=== PATIENT | female | born 1935 | race Caucasian/White ===

== ENCOUNTER 2016-06-22 15:32 | Emergency (ER) | payer MEDICARE, OTHER ==
[~2016-06-22] VITALS: Ht 160 cm; Wt 106.0 kg
[~2016-06-22 15:32] MED LIST: ACET325 PO; AUGM875T PO; BUME1TAB PO; CALC.25 PO; DULO30 PO; GLIP-158 PO; LEVO.05 PO; METO25CR PO; PERI8.6T PO; PRAV40 PO; SPIR25 PO
[2016-06-22 15:39] VITALS: BP 135/70; PULSE 75; RESP 20; TEMP 97.9
[2016-06-22 17:34] VITALS: BP 141/60; PULSE 62; RESP 18; O2SAT 96
[2016-06-22 17:59] LABS: BASOPHIL # 0.1 TH/MM3 (0-0.2); BASOPHIL % 0.8 % (0.0-2.0); EOSINOPHIL # 0.2 TH/MM3 (0-0.4); EOSINOPHIL % 2.1 % (0.0-4.0); HEMATOCRIT 42.3 % (35.0-46.0); HEMO FLAGS DIFF FINAL; LYMPH % 19.5 % (9.0-44.0); LYMPHOCYTE # 1.4 TH/MM3 (1.0-4.8); MEAN CELL VOLUME 88.3 FL (80.0-100.0); MEAN CORPUSCULAR HEMOGLOBIN 28.5 PG (27.0-34.0); MEAN CORPUSCULAR HGB CONC 32.3 % (32.0-36.0); MONO % 9.5 % (0.0-8.0); NEUT % 68.1 % (16.0-70.0); PLATELET COUNT 187 TH/MM3 (150-450); RED BLOOD COUNT 4.79 MIL/MM3 (4.00-5.30); RED CELL DISTRIBUTION WIDTH 15.5 % (11.6-17.2); WHITE BLOOD COUNT 7.4 TH/MM3 (4.0-11.0)
[2016-06-22 18:07] LABS: POTASSIUM 3.8 MEQ/L (3.5-5.1)
[2016-06-22 18:10] LABS: BICARBONATE 30.7 MEQ/L (21.0-32.0)
[2016-06-22 18:13] LABS: APTT (PATIENT) 30.8 SEC (24.3-30.1); INTERNATIONAL NORMALIZED RATIO 1.2 RATIO; PROTHROMBIN TIME - PATIENT 13.5 SEC (9.8-11.6)
[2016-06-22 18:43] VITALS: BP 123/63; PULSE 64; RESP 16; O2SAT 96
[2016-06-22 18:55] LABS: BLOOD, URINE NEG (NEG); GLUCOSE,URINE NEG (NEG); KETONE, URINE NEG (NEG); NITRITE,URINE NEG (NEG); PH, URINE 5.5 (5.0-8.5)
[2016-06-22 18:59] LABS: RBC, URINE 0-2 /hpf (0-3); SQUAMOUS EPITHELIAL CELL URINE 0-5 /hpf (0-5); URINE COLOR STRAW (YELLW/STRAW); WBC, URINE 0-2 /hpf (0-5)
[2016-06-22 19:00] LABS: COMMENT (UR) CATH-CULT NOT IND; CULTURE IF INDICATED CATH CULTURE NOT IND
[2016-06-22] MEDS ORDERED: TOPR25TA PO (19:14)
[2016-06-22] MEDS ORDERED: LEVO50TA4 PO (19:14)
[2016-06-22] MEDS ORDERED: SENO8.6T5 PO (19:14)
[2016-06-22] MEDS ORDERED: ZOCO20TA PO (19:14)
[2016-06-22] MEDS ORDERED: CALC0.25 PO (19:14)
[2016-06-22] MEDS ORDERED: DULO20 PO (19:14)
[2016-06-22] MEDS ORDERED: SPIR25 PO (19:14)
[2016-06-22] MEDS ORDERED: GLIP5TAB8 PO (19:14)
[2016-06-22] MEDS ORDERED: WARF4TAB51 PO (19:14)
--- NOTE | 2016-06-22 19:23 | PD ---
HPI Chief Complaint: Complaint Time Seen by Provider: 17:10 Travel History International Travel<30 days: No Contact w/Intl Traveler<30days: No Traveled to known affect area: No History of Present Illness HPI This 81-year-old female earlier today felt like she was unable to void. She came to the emergency department and spontaneously voided a large amount she was treated for urinary tract infection last week. 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 PFSH Past Medical History Hx Anticoagulant Therapy: Yes Arthritis: Yes Asthma: No Atrial Fibrillation: Yes Autoimmune Disease: No Blood Disorders: No Anxiety: No Depression: No Heart Rhythm Problems: Yes (A-FIB) Cancer: No Cardiac Catheterization: Yes Cardiovascular Problems: Yes (CABG) High Cholesterol: Yes Chemotherapy: No Chest Pain: No Congestive Heart Failure: Yes COPD: No Cerebrovascular Accident: Yes Coronary Artery Disease: Yes Diabetes: Yes Patient Takes Glucophage: No Diminished Hearing: No ([place]) Endocrine: Yes Gastrointestinal Disorders: Yes (HERNIA) GERD: No Glaucoma: Yes Genitourinary: Yes Headaches: No Hepatitis: No Hiatal Hernia: Yes (STILL HAS) Hypertension: Yes Immune Disorder: No Kidney Stones: No Musculoskeletal: Yes Neurologic: Yes (TIA VS STROKE, BRAIN BLEED 2007) Psychiatric: No Reproductive: Yes (FIBROIDS/HYSTERECTOMY) Respiratory: No Integumentary: Yes (SACRAL DECUBITUS ULCER WOUND VAC 2006) Immunizations Current: Yes (SHINGLES) Migraines: No Myocardial Infarction: No Radiation Therapy: No Renal Failure: Yes (RHABDO RESOLVED) Seizures: No Sickle Cell Disease: No Sleep Apnea: No Thyroid Disease: Yes Ulcer: No Tetanus Vaccination: < 5 Years ?: Not : 3 Para: 3 Past Surgical History Abdominal Surgery: Yes (APPENDECTOMY) AICD: No Appendectomy: Yes Arteriovenous Shunt: No Cardiac Surgery: Yes (cabg AND STENTS) Coronary Artery Bypass Graft: Yes Coronary Stent: Yes Ear Surgery: No Endocrine Surgery: Yes (THYROIDECTOMY) Eye Surgery: Yes (bilateral CATARACTS ) Genitourinary Surgery: No Gynecologic Surgery: Yes (HYSTERECTOMY) Hysterectomy: Yes Insulin Pump: No Joint Replacement: No Neurologic Surgery: Yes (BACK SURGERY FOR SCIATICA) Oral Surgery: Yes (CAPS AND BRIDGES) Pacemaker: No Thoracic Surgery: No Valve Replacement: Yes Other Surgery: Yes Social History Alcohol Use: No Tobacco Use: No ("quit 1960s") Substance Use: No Allergies-Medications (Allergen,Severity, Reaction): Coded Allergies: *MDRO Multi-Drug Resistant Organism (Verified Adverse Reaction, Unknown, ) Patient reports history of MRSA in toe in 2007. MRSA PCR Screen negative 03/28/15 & 01/08/16 Cleared per Infection Control Reported Meds & Prescriptions Reported Meds & Active Scripts Active Reported Senokot (Sennosides) 8.6 Mg Tab 8.6 Mg PO DAILY Zocor (Simvastatin) 20 Mg Tab 20 Mg PO DAILY Warfarin 2 Mg Tab 2 Mg PO DAILY Calcitriol 0.25 Mcg Cap 0.25 Mcg PO SUN, SUN, SUN Glipizide 5 Mg Tab 5 Mg PO BIDAC Take 30 minutes before a meal Cymbalta DR (Duloxetine HCl) 20 Mg Capdr 20 Mg PO DAILY Toprol XL (Metoprolol Succinate) 25 Mg Tab 25 Mg PO DAILY Aldactone (Spironolactone) 25 Mg Tab 25 Mg PO DAILY Levothyroxine (Levothyroxine Sodium) 50 Mcg Tab 50 Mcg PO DAILY Review of Systems General / Constitutional: No: Fever, Chills Eyes: No: Diploplia Cardiovascular: No: Chest Pain or Discomfort Respiratory: No: Cough Genitourinary: Positive: Decreased Urinary Output, No: Dysuria Musculoskeletal: No: Myalgias Skin: No Itching Physical Exam Narrative GENERAL: Well-developed female SKIN: Warm and dry. HEAD: Atraumatic. Normocephalic. EYES: Pupils equal and round. No scleral icterus. No injection or drainage. ENT: No nasal bleeding or discharge. Mucous membranes pink and moist. NECK: Trachea midline. No JVD. CARDIOVASCULAR: Regular rate and rhythm. No murmur appreciated. RESPIRATORY: No accessory muscle use. Clear to auscultation. Breath sounds equal bilaterally. GASTROINTESTINAL: Abdomen soft, non-tender, nondistended. Hepatic and splenic margins not palpable. MUSCULOSKELETAL: No obvious deformities. No clubbing. No cyanosis. No edema. NEUROLOGICAL: Awake and alert. No obvious cranial nerve deficits. Motor grossly within normal limits. Normal speech. PSYCHIATRIC: Appropriate mood and affect; insight and judgment normal. Data Data Last Documented VS Vital Signs Date Time Temp Pulse Resp B/P Pulse Ox O2 Delivery O2 Flow Rate FiO2 06/22/16 18:43 64 16 123/63 96 Room Air 06/22/16 15:39 97.9 Orders Urinalysis - C+S If Indicated (06/22/16 17:13) Complete Blood Count With Diff (06/22/16 17:43) Basic Metabolic Panel (Bmp) (06/22/16 17:43) Prothrombin Time / Inr (Pt) (06/22/16 17:43) Act Partial Throm Time (Ptt) (06/22/16 17:43) Urinary Catheter Insert/Apply (06/22/16 17:43) Labs Laboratory Tests Test 06/22/16 06/22/16 17:50 18:25 White Blood Count 7.4 TH/MM3 Red Blood Count 4.79 MIL/MM3 Hemoglobin 13.7 GM/DL Hematocrit 42.3 % Mean Corpuscular Volume 88.3 FL Mean Corpuscular Hemoglobin 28.5 PG Mean Corpuscular Hemoglobin 32.3 % Concent Red Cell Distribution Width 15.5 % Platelet Count 187 TH/MM3 Mean Platelet Volume 8.6 FL Neutrophils (%) (Auto) 68.1 % Lymphocytes (%) (Auto) 19.5 % Monocytes (%) (Auto) 9.5 % Eosinophils (%) (Auto) 2.1 % Basophils (%) (Auto) 0.8 % Neutrophils # (Auto) 5.0 TH/MM3 Lymphocytes # (Auto) 1.4 TH/MM3 Monocytes # (Auto) 0.7 TH/MM3 Eosinophils # (Auto) 0.2 TH/MM3 Basophils # (Auto) 0.1 TH/MM3 CBC Comment DIFF FINAL Differential Comment Prothrombin Time 13.5 SEC Prothromb Time International 1.2 RATIO Ratio Activated Partial 30.8 SEC Thromboplast Time Sodium Level 141 MEQ/L Potassium Level 3.8 MEQ/L Chloride Level 101 MEQ/L Carbon Dioxide Level 30.7 MEQ/L Anion Gap 9 MEQ/L Blood Urea Nitrogen 40 MG/DL Creatinine 1.40 MG/DL Estimat Glomerular Filtration 36 ML/MIN Rate Random Glucose 89 MG/DL Calcium Level 8.9 MG/DL Urine Color STRAW Urine Turbidity CLEAR Urine pH 5.5 Urine Specific [place] 1.006 Urine Protein NEG mg/dL Urine Glucose (UA) NEG mg/dL Urine Ketones NEG mg/dL Urine Occult Blood NEG Urine Nitrite NEG Urine Bilirubin NEG Urine Leukocyte Esterase NEG Urine RBC 0-2 /hpf Urine WBC 0-2 /hpf Urine Squamous Epithelial 0-5 /hpf Cells Urine Bacteria NONE /hpf Microscopic Urinalysis Comment CATH-CULT NOT IND MDM Medical Decision Making Medical Screen Exam Complete: Yes Emergency Medical Condition: Yes Medical Record Reviewed: Yes Differential Diagnosis Differential includes UTI, urinary retention Narrative Course Cedeno catheter was inserted with 500 cc of urine obtained. The urine is not infected. Lab work is similar to previous values her INR is low normal. Patient will be released with instructions to return if she is unable to void sending her home with a catheter was discussed with the patient prefers a trial without the catheter Diagnosis Primary Impression: Urinary retention Disposition: 01 DISCHARGE HOME Condition: Stable Evert Meza MD Jun 22, 2016 19:23
== END 2016-06-22 19:57 | disposition home or self-care (01) ==
LOC: PHED 15:32
DX: R33.9 Retention of urine, unspecified (principal); I48.91 Unspecified atrial fibrillation; E78.00 Pure hypercholesterolemia, unspecified; E11.9 Type 2 diabetes mellitus without complications; I10 Essential (primary) hypertension; Z79.01 Long term (current) use of anticoagulants
CPT/HCPCS: 51702; 80048; 81001; 85025; 85610; 85730

== ENCOUNTER → 2016-08-11 | Outpatient (CLI) | payer MEDICARE, OTHER ==
[~2016-08-11] MED LIST changes: -ACET325 PO; -AUGM875T PO; -BUME1TAB PO; -CALC.25 PO; +CALC0.25 PO; +DULO20 PO; -DULO30 PO; -GLIP-158 PO; +GLIP5TAB8 PO; -LEVO.05 PO; +LEVO50TA4 PO; +META48.53 PO; -METO25CR PO; -PERI8.6T PO; -PRAV40 PO; +SENN1TAB PO; +SENO8.6T5 PO; +TOPR25TA PO; +WARF4TAB51 PO; +ZOCO20TA PO
[2016-08-11 13:38] LABS: HEMATOCRIT 40.2 % (35.0-46.0); MEAN CELL VOLUME 90.2 FL (80.0-100.0); MEAN CORPUSCULAR HEMOGLOBIN 29.9 PG (27.0-34.0); MEAN CORPUSCULAR HGB CONC 33.2 % (32.0-36.0); PLATELET COUNT 187 TH/MM3 (150-450); RED BLOOD COUNT 4.45 MIL/MM3 (4.00-5.30); RED CELL DISTRIBUTION WIDTH 15.9 % (11.6-17.2); REVIEW FLAG FINAL; WHITE BLOOD COUNT 7.5 TH/MM3 (4.0-11.0)
[2016-08-11 14:08] LABS: ANION GAP 8 MEQ/L (5-15); AST (GOT) 18 U/L (15-37); BICARBONATE 31.4 MEQ/L (21.0-32.0); BLOOD UREA NITROGEN 29 MG/DL (7-18); CHLORIDE 103 MEQ/L (98-107); GLOMERULAR FILTRATION RATE 37 ML/MIN (>89); GLUCOSE,FASTING 88 MG/DL (74-99); POTASSIUM 4.4 MEQ/L (3.5-5.1); SODIUM (NA) 142 MEQ/L (136-145)
[2016-08-11 14:21] LABS: ALKALINE PHOSPHATASE 94 U/L (45-117); ALT (GPT) 17 U/L (10-53); HDL CHOLESTEROL 39.9 MG/DL (40.0-60.0); LDL CHOLESTEROL 101 MG/DL (0-99); TOTAL BILIRUBIN ADULT 0.4 MG/DL (0.2-1.0)
== END ==
LOC: PLAB 09:25
PROVIDERS: ATTEND Internal Medicine Interventional Cardiology
DX: R53.81 Other malaise (principal); I25.10 Atherosclerotic heart disease of native coronary artery without angina pectoris; I35.0 Nonrheumatic aortic (valve) stenosis; R60.0 Localized edema; R00.1 Bradycardia, unspecified; I34.0 Nonrheumatic mitral (valve) insufficiency; E78.00 Pure hypercholesterolemia, unspecified
CPT/HCPCS: 36415; 80053; 80061; 84443; 85027

== ENCOUNTER → 2016-10-13 | Outpatient (CLI) | payer MEDICARE, OTHER ==
[2016-10-13 13:11] LABS: AUTOMATED NEUTROPHIL # 5.5 TH/MM3 (1.8-7.7); BASOPHIL % 0.6 % (0.0-2.0); EOSINOPHIL # 0.1 TH/MM3 (0-0.4); HEMATOCRIT 41.2 % (35.0-46.0); HEMO FLAGS DIFF FINAL; LYMPH % 12.5 % (9.0-44.0); LYMPHOCYTE # 0.9 TH/MM3 (1.0-4.8); MEAN CELL VOLUME 92.5 FL (80.0-100.0); MEAN CORPUSCULAR HEMOGLOBIN 29.6 PG (27.0-34.0); MEAN CORPUSCULAR HGB CONC 31.9 % (32.0-36.0); MONO % 8.3 % (0.0-8.0); NEUT % 76.6 % (16.0-70.0); PLATELET COUNT 186 TH/MM3 (150-450); RED BLOOD COUNT 4.45 MIL/MM3 (4.00-5.30); RED CELL DISTRIBUTION WIDTH 14.6 % (11.6-17.2); WHITE BLOOD COUNT 7.2 TH/MM3 (4.0-11.0)
[2016-10-13 13:34] LABS: BACTERIA, URINE OCC /hpf; BLOOD, URINE SMALL (NEG); GLUCOSE,URINE NEG (NEG); KETONE, URINE NEG (NEG); MUCUS URINE FEW /lpf (OCC); NITRITE,URINE NEG (NEG); PH, URINE 5.5 (5.0-8.5); SQUAMOUS EPITHELIAL CELL URINE 5 /hpf (0-5); URINE COLOR YELLOW (YELLW/STRAW)
[2016-10-13 13:40] LABS: BICARBONATE 33.6 MEQ/L (21.0-32.0); POTASSIUM 4.1 MEQ/L (3.5-5.1)
== END ==
LOC: PLAB 10:14
PROVIDERS: ATTEND Internal Medicine Nephrology
DX: N25.81 Secondary hyperparathyroidism of renal origin (principal); E55.9 Vitamin D deficiency, unspecified; I12.9 Hypertensive chronic kidney disease with stage 1 through stage 4 chronic kidney disease, or unspecified chronic kidney disease; N18.3 Chronic kidney disease, stage 3 (moderate); E11.22 Type 2 diabetes mellitus with diabetic chronic kidney disease
CPT/HCPCS: 36415; 80069; 81001; 82306; 82570; 83970; 84156; 85025

== ENCOUNTER 2016-11-15 12:38 | Observation (INO) | payer MEDICARE, OTHER ==
[~2016-11-15] VITALS: Ht 157.5 cm; Wt 100.0 kg
[~2016-11-15 12:38] MED LIST changes: -META48.53 PO; -SENN1TAB PO
[2016-11-15 12:39] VITALS: BP 137/77; PULSE 68; RESP 20; TEMP 97.8; O2SAT 97
[2016-11-15 13:35] VITALS: O2SAT 97
--- NOTE | 2016-11-15 13:35 | PD ---
HPI Chief Complaint: Bleeding Time Seen by Provider: 13:35 Travel History International Travel<30 days: No Contact w/Intl Traveler<30days: No Traveled to known affect area: No History of Present Illness HPI 81-year-old female with a history of hypertension, diabetes, CVA, atrial fibrillation, anticoagulated on Coumadin presents to the emergency department for evaluation of blood in stool. 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 The patient is stating that yesterday she had a bowel movement and noticed that there was bright red blood in the toilet. The caregiver stating that she saw there was a large blood clot in the toilet after the patient had a bowel movement. The patient is stating that yesterday is the first time she has noticed this. Denies any black stools, abdominal pain, nausea, vomiting, diarrhea, lightheadedness, dizziness, chest pain, shortness of breath, weakness. States that her last INR was last week and was 2.5. States that she does have some constipation and strains with bowel movements. No other complaints. PFSH Past Medical History Hx Anticoagulant Therapy: Yes (coumadin) Arthritis: Yes Asthma: No Atrial Fibrillation: Yes Autoimmune Disease: No Blood Disorders: No Anxiety: No Depression: No Heart Rhythm Problems: Yes (A-FIB) Cancer: No Cardiac Catheterization: Yes Cardiovascular Problems: Yes (bypass) High Cholesterol: Yes Chemotherapy: No Chest Pain: No Congestive Heart Failure: Yes COPD: No Cerebrovascular Accident: Yes Coronary Artery Disease: Yes Diabetes: Yes Patient Takes Glucophage: Yes Diminished Hearing: No ([place]) Endocrine: Yes Gastrointestinal Disorders: Yes (HERNIA) GERD: No Glaucoma: Yes Genitourinary: Yes Headaches: No Hepatitis: No Hiatal Hernia: Yes (STILL HAS) Hypertension: Yes Immune Disorder: No Kidney Stones: No Musculoskeletal: Yes Neurologic: Yes (TIA VS STROKE, BRAIN BLEED 2007) Psychiatric: No Reproductive: Yes (FIBROIDS/HYSTERECTOMY) Respiratory: No Integumentary: Yes (SACRAL DECUBITUS ULCER WOUND VAC 2006) Immunizations Current: Yes (SHINGLES) Migraines: No Myocardial Infarction: No Radiation Therapy: No Renal Failure: Yes (RHABDO RESOLVED) Seizures: No Sickle Cell Disease: No Sleep Apnea: No Thyroid Disease: Yes Ulcer: No : 3 Para: 3 Past Surgical History Abdominal Surgery: Yes (APPENDECTOMY) AICD: No Appendectomy: Yes Arteriovenous Shunt: No Cardiac Surgery: Yes Coronary Artery Bypass Graft: Yes Coronary Stent: Yes Ear Surgery: No Endocrine Surgery: Yes (THYROIDECTOMY) Eye Surgery: Yes (bilateral CATARACTS ) Genitourinary Surgery: No Gynecologic Surgery: Yes (HYSTERECTOMY) Hysterectomy: Yes Insulin Pump: No Joint Replacement: No Neurologic Surgery: Yes (BACK SURGERY FOR SCIATICA) Oral Surgery: Yes (CAPS AND BRIDGES) Pacemaker: No Thoracic Surgery: No Valve Replacement: Yes Other Surgery: Yes Social History Alcohol Use: No Tobacco Use: No Substance Use: No Allergies-Medications (Allergen,Severity, Reaction): Coded Allergies: *MDRO Multi-Drug Resistant Organism (Verified Adverse Reaction, Unknown, ) Patient reports history of MRSA in toe in 2007. MRSA PCR Screen negative 03/28/15 & 01/08/16 Cleared per Infection Control Reported Meds & Prescriptions Reported Meds & Active Scripts Active Reported Senokot (Sennosides) 8.6 Mg Tab 8.6 Mg PO DAILY Zocor (Simvastatin) 20 Mg Tab 20 Mg PO DAILY Warfarin 2 Mg Tab 2 Mg PO DAILY Calcitriol 0.25 Mcg Cap 0.25 Mcg PO MON, WED, FRI Glipizide 5 Mg Tab 5 Mg PO BIDAC Take 30 minutes before a meal Cymbalta DR (Duloxetine HCl) 20 Mg Capdr 20 Mg PO DAILY Toprol XL (Metoprolol Succinate) 25 Mg Tab 25 Mg PO DAILY Aldactone (Spironolactone) 25 Mg Tab 25 Mg PO DAILY Levothyroxine (Levothyroxine Sodium) 50 Mcg Tab 50 Mcg PO DAILY Review of Systems Except as stated in HPI: all other systems reviewed are Neg Physical Exam Narrative GENERAL: Well-nourished and well-developed pleasant female patient in no acute distress. SKIN: Warm and dry. HEAD: Normocephalic and atraumatic. EYES: No injection, drainage, or hyphema noted. PERRLA. EOMI. ENT: No nasal drainage noted. Oropharynx is clear. NECK: Supple and the trachea is midline. CARDIOVASCULAR: Regular rate and rhythm. RESPIRATORY: Breath sounds are equal bilaterally with no accessory muscle use, wheezing, rhonchi, or crackles. GASTROINTESTINAL: Abdomen is soft, non-tender, and nondistended. RECTAL EXAM: Hard stool noted in the rectum. Stool is brown. Performed in the presence of Cyndi Evans RN. MUSCULOSKELETAL: No obvious deformities, swelling, cyanosis, or ecchymosis is present throughout the upper and lower extremities. Patient has full range of motion without any signs of neurovascular compromise. NEUROLOGICAL: Awake, alert, and oriented. Stuttering speech. Normal gait. Cranial nerves are grossly intact. Data Data Last Documented VS Vital Signs Date Time Temp Pulse Resp B/P Pulse Ox O2 Delivery O2 Flow Rate FiO2 11/15/16 14:22 74 18 134/68 98 Room Air 11/15/16 12:39 97.8 Orders Complete Blood Count With Diff (11/15/16 13:33) Comprehensive Metabolic Panel (11/15/16 13:33) Prothrombin Time / Inr (Pt) (11/15/16 13:33) Act Partial Throm Time (Ptt) (11/15/16 13:33) Type And Screen (11/15/16 13:33) Ecg Monitoring (11/15/16 13:33) Iv Access Insert/Monitor (11/15/16 13:33) Oximetry (11/15/16 13:33) Sodium Chloride 0.9% Flush (Ns Flush) (11/15/16 13:45) Pantoprazole Inj (Protonix Inj) (11/15/16 13:45) Pantoprazole Inj (Protonix Inj) (11/15/16 13:45) Admit Order (Ed Use Only) (11/15/16 15:02) Consult Gastroenterology (11/15/16 ) Labs Laboratory Tests Test 11/15/16 13:38 White Blood Count 7.5 TH/MM3 Red Blood Count 4.66 MIL/MM3 Hemoglobin 13.8 GM/DL Hematocrit 43.4 % Mean Corpuscular Volume 93.2 FL Mean Corpuscular Hemoglobin 29.6 PG Mean Corpuscular Hemoglobin 31.7 % Concent Red Cell Distribution Width 15.0 % Platelet Count 186 TH/MM3 Mean Platelet Volume 8.5 FL Neutrophils (%) (Auto) 70.8 % Lymphocytes (%) (Auto) 16.8 % Monocytes (%) (Auto) 9.1 % Eosinophils (%) (Auto) 2.7 % Basophils (%) (Auto) 0.6 % Neutrophils # (Auto) 5.3 TH/MM3 Lymphocytes # (Auto) 1.3 TH/MM3 Monocytes # (Auto) 0.7 TH/MM3 Eosinophils # (Auto) 0.2 TH/MM3 Basophils # (Auto) 0.0 TH/MM3 CBC Comment DIFF FINAL Differential Comment Prothrombin Time 30.2 SEC Prothromb Time International 2.6 RATIO Ratio Activated Partial 45.7 SEC Thromboplast Time Sodium Level 139 MEQ/L Potassium Level 3.8 MEQ/L Chloride Level 102 MEQ/L Carbon Dioxide Level 30.6 MEQ/L Anion Gap 6 MEQ/L Blood Urea Nitrogen 32 MG/DL Creatinine 1.41 MG/DL Estimat Glomerular Filtration 36 ML/MIN Rate Random Glucose 85 MG/DL Calcium Level 9.5 MG/DL Total Bilirubin 0.4 MG/DL Aspartate Amino Transf 24 U/L (AST/SGOT) Alanine Aminotransferase 19 U/L (ALT/SGPT) Alkaline Phosphatase 99 U/L Total Protein 8.0 GM/DL Albumin 3.6 GM/DL Blood Type O POSITIVE Antibody Screen NEGATIVE MDM Medical Decision Making Medical Screen Exam Complete: Yes Emergency Medical Condition: Yes Differential Diagnosis GI bleed versus supratherapeutic INR versus peptic ulcer disease versus colitis Narrative Course 81-year-old female presents to the emergency department for evaluation of rectal bleeding last night. Patient is afebrile, vital signs are stable. On examination stool is guaiac positive. She is anticoagulated on Coumadin. IV access is obtained, labs have been drawn and sent. Patient is placed on cardiac telemetry and pulse oximetry monitoring. Protonix bolus and drip has been initiated. CBC is unremarkable. CMP is unremarkable. INR is 2.6. Patient has remained stable without complaint while here in the emergency department. She'll be admitted under observation status to medicine service with consultation to [facility]enterology. [facility] Internal Pos. & Neg. Controls: Passed Fecal Specimen Occult Blood: Positive Physician Communication Physician Communication I spoke with Dr. Alvarez [facility] who agrees to admit the patient to his service. Diagnosis Primary Impression: GI bleed Qualified Code: K92.2 - Gastrointestinal hemorrhage, unspecified gastrointestinal hemorrhage type Additional Impression: Anticoagulated on warfarin Admitting Information Admitting Physician Requests: Observation Rosi Alvarez Nov 15, 2016 13:35
[2016-11-15] MEDS ORDERED: PANTOPRAZOLE INJ 80 MG in SODIUM CHLORIDE 0.9% INJ 35 ML IV ONE (13:45)
[2016-11-15] MEDS ORDERED: SODIUM CHLORIDE 0.9% FLUSH 10 ML FLUSH IVF PRN (13:45)
[2016-11-15 13:52] LABS: AUTOMATED NEUTROPHIL # 5.3 TH/MM3 (1.8-7.7); BASOPHIL % 0.6 % (0.0-2.0); EOSINOPHIL # 0.2 TH/MM3 (0-0.4); EOSINOPHIL % 2.7 % (0.0-4.0); HEMATOCRIT 43.4 % (35.0-46.0); HEMO FLAGS DIFF FINAL; LYMPH % 16.8 % (9.0-44.0); LYMPHOCYTE # 1.3 TH/MM3 (1.0-4.8); MEAN CELL VOLUME 93.2 FL (80.0-100.0); MEAN CORPUSCULAR HEMOGLOBIN 29.6 PG (27.0-34.0); MEAN CORPUSCULAR HGB CONC 31.7 % (32.0-36.0); MONO % 9.1 % (0.0-8.0); NEUT % 70.8 % (16.0-70.0); PLATELET COUNT 186 TH/MM3 (150-450); RED BLOOD COUNT 4.66 MIL/MM3 (4.00-5.30); WHITE BLOOD COUNT 7.5 TH/MM3 (4.0-11.0)
[2016-11-15 14:00] LABS: APTT (PATIENT) 45.7 SEC (24.3-30.1); INTERNATIONAL NORMALIZED RATIO 2.6 RATIO; PROTHROMBIN TIME - PATIENT 30.2 SEC (9.8-11.6)
[2016-11-15 14:16] LABS: ALT (GPT) 19 U/L (10-53); ANION GAP 6 MEQ/L (5-15); AST (GOT) 24 U/L (15-37); BICARBONATE 30.6 MEQ/L (21.0-32.0); BLOOD UREA NITROGEN 32 MG/DL (7-18); CHLORIDE 102 MEQ/L (98-107); GLOMERULAR FILTRATION RATE 36 ML/MIN (>89); POTASSIUM 3.8 MEQ/L (3.5-5.1); SODIUM (NA) 139 MEQ/L (136-145)
[2016-11-15 14:18] LABS: ALKALINE PHOSPHATASE 99 U/L (45-117); TOTAL BILIRUBIN ADULT 0.4 MG/DL (0.2-1.0)
[2016-11-15 14:22] VITALS: BP 134/68; PULSE 74; RESP 18; O2SAT 98
[2016-11-15] MEDS: PANTOPRAZOLE INJ 80 MG in SODIUM CHLORIDE 0.9% INJ 100 ML IV SCH ×2 (14:52→23:41)
[2016-11-15] MEDS ORDERED: SENNOSIDES 8.6 MG TAB PO PRN (15:15)
[2016-11-15] MEDS ORDERED: MAGNESIUM HYDROXIDE SUSP 30 ML CUP PO PRN (15:15)
[2016-11-15] MEDS ORDERED: LACTULOSE SYRUP 20 GM/30 ML CUP PO PRN (15:15)
[2016-11-15] MEDS ORDERED: ONDANSETRON HCL 4 MG/2 ML VIAL IVP PRN (15:15)
[2016-11-15] MEDS ORDERED: SODIUM CHLORIDE 0.9% FLUSH 10 ML FLUSH IV FLUSH PRN (15:15)
[2016-11-15] MEDS ORDERED: BISACODYL 10 MG SUPP RECTAL PRN (15:15)
[2016-11-15] MEDS ORDERED: NALOXONE HCL 0.4 MG/ML AMP IV PRN (15:15)
[2016-11-15] MEDS: SODIUM CHLOR 0.9% 1000 ML INJ 1,000 ML IV SCH ×2 (15:42→23:41)
[2016-11-15] MEDS ORDERED: GLUCAGON 1 MG/ML VIAL OTHER PRN (17:45)
[2016-11-15] MEDS ORDERED: DEXTROSE 50% IN WATER 50 ML VIAL(D50) IV PRN (17:45)
--- NOTE | 2016-11-15 17:57 | HHI.HP ---
[facility] Service [facility] Primary Care Physician Nabil Owen MD Admission Diagnosis GI Bleed, Anticoagulated on Warfarin Diagnoses: Travel History International Travel<30 Days: No Contact w/Intl Traveler <30 Da: No Traveled to Known Affected Are: No History of Present Illness Mrs. Orozco is an 81 year old female. She is here today due to an acute onset of GI Bleeding while having a bowel movement. She reports straining and then seeing blood in her stool and toilet bowl. When she stood, there was dripping of blood. Concerned she came to the ER. She is on Coumadin at baseline secondary to artificial aortic and mitral heart valves. INR is therapeutic tonight. She has one previous GI Bleed in 2010. Hgb is 13.8 tonight. No complaints of abdominal pain. At baseline she has dysarthria secondary to a history of CVA. No other complaints. No chest pain, no dyspnea, no nausea, no diarrhea, no presyncope. Review of Systems Constitutional: DENIES: Fatigue, Fever, Chills Eyes: DENIES: Blurred vision, Diplopia Ears, nose, mouth, throat: DENIES: Hearing loss, Vertigo Respiratory: DENIES: Cough, Wheezing, Shortness of breath Cardiovascular: DENIES: Chest pain, Palpitations, Syncope Gastrointestinal: COMPLAINS OF: Bloody stools, DENIES: Abdominal pain, Black stools Musculoskeletal: DENIES: Joint pain, Muscle aches Integumentary: DENIES: Abnormal pigmentation Hematologic/lymphatic: DENIES: Bruising Immunologic/allergic: DENIES: Eczema Neurologic: DENIES: Abnormal gait Psychiatric: DENIES: Anxiety, Confusion Past Family Social History Past Medical History DM2 CKD PAD CAD HTN Hx of GI Bleed GI AVMs Chronic Neck Pain Past Surgical History CABGx2 Mitral Valve replacement Aortic Valve replacement TYSON/BSO Ventral Hernia repair LLE Angioplasty Reported Medications Reported Meds & Active Scripts Active Reported Senokot (Sennosides) 8.6 Mg Tab 8.6 Mg PO DAILY Zocor (Simvastatin) 20 Mg Tab 20 Mg PO DAILY Warfarin 2 Mg Tab 2 Mg PO DAILY Calcitriol 0.25 Mcg Cap 0.25 Mcg PO MON, WED, SUN Glipizide 5 Mg Tab 5 Mg PO BIDAC Take 30 minutes before a meal Cymbalta DR (Duloxetine HCl) 20 Mg Capdr 20 Mg PO DAILY Toprol XL (Metoprolol Succinate) 25 Mg Tab 25 Mg PO DAILY Aldactone (Spironolactone) 25 Mg Tab 25 Mg PO DAILY Levothyroxine (Levothyroxine Sodium) 50 Mcg Tab 50 Mcg PO DAILY Allergies: Coded Allergies: *MDRO Multi-Drug Resistant Organism (Verified Adverse Reaction, Unknown, ) Patient reports history of MRSA in toe in 2007. MRSA PCR Screen negative 03/28/15 & 01/08/16 Cleared per Infection Control Active Ordered Medications Administered Medications Medications (Trade) Dose Ordered Sig/Alessia Route PRN Reason Start Time Stop Time Status Last Admin Dose Admin Pantoprazole Sodium 80 mg/ Sodium Chloride 100 ml @ 10 mls/hr Q10H IV 11/15/16 13:45 11/15/16 14:52 Sodium Chloride (NS 1000 ml Inj) 1,000 ml @ 100 mls/hr Q10H IV 11/15/16 15:04 11/15/16 15:42 Family History Ovarian Cancer in Mother Social History Former Smoker, quit in 1983 after a 20 year history of smoking No alcohol abuse No drug abuse Physical Exam Vital Signs Vital Signs Date Time Temp Pulse Resp B/P Pulse Ox O2 Delivery O2 Flow Rate FiO2 11/15/16 14:22 74 18 134/68 98 Room Air 11/15/16 13:35 97 Room Air 11/15/16 12:39 97.8 68 20 137/77 97 Room Air Physical Exam GENERAL: NAD, A&Ox3, dysarthric speech SKIN: Warm and dry. HEAD: Normocephalic. EYES: No scleral icterus. No injection or drainage. NECK: Supple, trachea midline. No JVD or lymphadenopathy. CARDIOVASCULAR: Regular rate and rhythm without murmurs, gallops, or rubs. RESPIRATORY: Breath sounds equal bilaterally. No accessory muscle use. GASTROINTESTINAL: Abdomen soft, non-tender, nondistended. MUSCULOSKELETAL: No cyanosis, or edema. BACK: Nontender without obvious deformity. No CVA tenderness. Laboratory Laboratory Tests Test 11/15/16 13:38 White Blood Count 7.5 Red Blood Count 4.66 Hemoglobin 13.8 Hematocrit 43.4 Mean Corpuscular Volume 93.2 Mean Corpuscular Hemoglobin 29.6 Mean Corpuscular Hemoglobin 31.7 Concent Red Cell Distribution Width 15.0 Platelet Count 186 Mean Platelet Volume 8.5 Neutrophils (%) (Auto) 70.8 Lymphocytes (%) (Auto) 16.8 Monocytes (%) (Auto) 9.1 Eosinophils (%) (Auto) 2.7 Basophils (%) (Auto) 0.6 Neutrophils # (Auto) 5.3 Lymphocytes # (Auto) 1.3 Monocytes # (Auto) 0.7 Eosinophils # (Auto) 0.2 Basophils # (Auto) 0.0 CBC Comment DIFF FINAL Differential Comment Prothrombin Time 30.2 Prothromb Time International 2.6 Ratio Activated Partial 45.7 Thromboplast Time Sodium Level 139 Potassium Level 3.8 Chloride Level 102 Carbon Dioxide Level 30.6 Anion Gap 6 Blood Urea Nitrogen 32 Creatinine 1.41 Estimat Glomerular Filtration 36 Rate Random Glucose 85 Calcium Level 9.5 Total Bilirubin 0.4 Aspartate Amino Transf 24 (AST/SGOT) Alanine Aminotransferase 19 (ALT/SGPT) Alkaline Phosphatase 99 Total Protein 8.0 Albumin 3.6 Blood Type O POSITIVE Antibody Screen NEGATIVE Result Diagram: 11/15/168 11/15/161337 Assessment and Plan Problem List: (1) Heart valve replaced ICD Code: Z95.2 Status: Chronic (2) Aortic valve prosthesis present ICD Code: Z95.2 Status: Acute (3) History of prosthetic mitral valve ICD Code: Z95.2 Status: Acute (4) GI bleed ICD Code: K92.2 Status: Acute (5) Anticoagulated on warfarin ICD Code: Z79.01 Status: Acute (6) Diabetes mellitus type 2 in obese ICD Code: E11.9 Status: Chronic (7) CKD (chronic kidney disease), stage III ICD Code: N18.3 Status: Chronic (8) HTN (hypertension) ICD Code: I10 Status: Chronic Assessment and Plan Assessment and Plan 81 year old female admitted with GI Bleed in setting of need for Coumadin ( therapeutic). GI Bleed No anemia thus far May be hemorrhoid related, based on history of spontaneous occurrence with bowel movement Hold coumadin for now Vitamin K Clear liquids GI consult Artificial Mitral Valve Artificial Aortic Valve Hold coumadin till bleeding stops Resume coumadin after bleeding stops DM2 Insulin Sliding Scale Follow blood sugars CKD IV Hydration Follow renal function PAD CAD Follow clinically No chest pain HTN Follow BP PRN IV Enalapril DVT Prophylaxis SCDs Problem Qualifiers (1) GI bleed: Qualified Code: K92.2 - Gastrointestinal hemorrhage, unspecified gastrointestinal hemorrhage type Tato Alvarez MD Nov 15, 2016 17:56
[2016-11-15] MEDS ORDERED: ENALAPRILAT 1.25 MG/ML VIAL IV PUSH PRN (18:00)
[2016-11-15] MEDS ORDERED: PHYTONADIONE 5 MG TAB PO ONE (18:00)
--- NOTE | 2016-11-15 19:04 | PD.CONS ---
GI Consult GI Consult SEE FORMAL GI CONSULT ALSO ([id number]) ASSESSMENT/PLAN: 1. Rectal Bleeding (with BM's) 2. Constipation 3. Hx of grade 2 internal hemorrhoids 4. 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 Anusol H-C supp. Cont laxatives. 2. clear liquid diet 3. Coumadin is on hold (agree) 4. D/W pt and Daughter-they want to hold off on a colonoscopy/sigmoidoscopy It was a pleasure seeing Barbie Orozco . Thank you for this consult. Entered by: Juanito Douglas MD Nov 15, 2016 19:04
[2016-11-15 19:06] VITALS: PULSE 58
[2016-11-15 19:34] VITALS: BP 146/63; PULSE 64; RESP 18; TEMP 97; O2SAT 96
[2016-11-15] MEDS: INSULIN ASPART SUPPLEMENTAL SCALE SQ SCH (21:00)
[2016-11-15] MEDS: HYDROCORTISONE ACETATE 25 MG SUPP RECTAL SCH (21:09)
[2016-11-15] MEDS: SODIUM CHLORIDE 0.9% FLUSH 10 ML FLUSH IV FLUSH SCH (21:09)
[2016-11-15] MEDS: DOCUSATE SODIUM 50 MG/SENNA 8.6 MG TAB PO SCH (21:09)
[2016-11-15 23:43] VITALS: BP 140/65; PULSE 74; RESP 16; TEMP 97.6; O2SAT 96
[2016-11-16] VITALS (8 sets, daily range): BP systolic 119–143; BP diastolic 58–69; PULSE 58–63; RESP 14–18; TEMP 97–98.5; O2SAT 94–98
[2016-11-16] MEDS: INSULIN ASPART SUPPLEMENTAL SCALE SQ SCH ×4 (05:27→21:52)
[2016-11-16 07:46] LABS: BASOPHIL % 0.9 % (0.0-2.0); EOSINOPHIL # 0.1 TH/MM3 (0-0.4); EOSINOPHIL % 2.6 % (0.0-4.0); HEMATOCRIT 38.8 % (35.0-46.0); HEMO FLAGS DIFF FINAL; LYMPH % 14.4 % (9.0-44.0); LYMPHOCYTE # 0.8 TH/MM3 (1.0-4.8); MEAN CELL VOLUME 91.4 FL (80.0-100.0); MEAN CORPUSCULAR HEMOGLOBIN 30.1 PG (27.0-34.0); MEAN CORPUSCULAR HGB CONC 32.9 % (32.0-36.0); MONO % 11.3 % (0.0-8.0); NEUT % 70.8 % (16.0-70.0); PLATELET COUNT 151 TH/MM3 (150-450); RED BLOOD COUNT 4.24 MIL/MM3 (4.00-5.30); RED CELL DISTRIBUTION WIDTH 14.5 % (11.6-17.2); WHITE BLOOD COUNT 5.6 TH/MM3 (4.0-11.0)
[2016-11-16 07:51] LABS: INTERNATIONAL NORMALIZED RATIO 3.2 RATIO; PROTHROMBIN TIME - PATIENT 37.4 SEC (9.8-11.6)
[2016-11-16 08:08] LABS: BICARBONATE 32.3 MEQ/L (21.0-32.0); POTASSIUM 3.5 MEQ/L (3.5-5.1)
--- NOTE | 2016-11-16 08:37 | MB ---
cc: ANALI JAVIER DANIEL F. M.D. PASRICHA, SUNIL P. M.D. DATE OF CONSULTATION 11/15/2016 REASON FOR CONSULTATION I have been asked to see this patient at the request of Dr. Tato Alvarez for evaluation of rectal bleeding. 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 She is on Coumadin. She is somewhat dysarthric and answers simple questions. Most of the history is obtained from the patient's daughter who is at the bedside. Apparently the patient has had some constipation and does not apparently take fiber and stool softeners all the time. Yesterday she had a bowel movement with a small amount of red and became intense - the bleeding only occurred with a hard bowel movement. The blood was red in nature. There are no black stools or abdominal pain, nausea, vomiting, diarrhea, lightheadedness or chest pain or dysphagia, odynophagia, early satiety or heart conditions. The emergency room a rectal exam was done which revealed hard stool and the stool is brown in color. We have been asked to evaluate her for this situation. I was able to review the records and the patient in 2012 had an episode of anemia and GI bleeding. She had a colonoscopy which revealed a grade 2 hemorrhoids as well as colonic diverticulosis extensive in the left colon. She has also had an upper endoscopy and a capsule endoscopy. The capsule endoscopy showed a possible duodenal ulcer and some AVMs. A subsequent enteroscopy showed some small bowel AVMs which were cauterized in the proximal small bowel. PAST MEDICAL HISTORY See above. 1. The patient also has history of coronary artery disease. 2. Diabetes. 3. Chronic kidney disease. 4. Peripheral artery disease. 5. Hypertension. 6. Previously as mentioned above, small bowel AVMs. 7. Chronic neck pain. 8. Chronic diverticulosis. 9. Previous polyps. 10. Internal hemorrhoids. 11. Duodenal ulcer. 12. She has had a CVA. 13. Atrial fibrillation, on Coumadin. 14. Hypothyroidism. 15. Decubitus ulcer in the past in the sacral area. 16. Shingles. 17. Fibroids. PAST SURGICAL HISTORY 1. Mitral valve replacement. 2. Aortic valve replacement. 3. Ventral hernia repair. 4. Angioplasty of the left lower extremity. 5. Hysterectomy and both ovaries also removed. 6. Upper endoscopy, colonoscopy, enteroscopy, the capsule endoscopy. 7. Appendectomy. 8. Thyroid surgery. 9. Cataracts. 10. Back surgery. 11. Oral surgery - caps and bridges. MEDICATIONS AN OUTPATIENT 1. Senokot. 2. Zocor. 3. Warfarin. 4. Calciferol. 5. Glipizide. 6. Toprol. 7. Cymbalta. 8. Levothyroxine. 9. Aldactone. SOCIAL HISTORY He does not currently smoke or drink. ALLERGIES She denies any drug allergies to me. REVIEW OF SYSTEMS CONSTITUTIONAL: No weight loss, fever or chills. CARDIOPULMONARY: No current chest on palpitation, weakness or shortness of breath. GASTROINTESTINAL: See please see above. Otherwise unremarkable 10-point review of systems. FAMILY HISTORY Not contributory for this admission. PHYSICAL EXAMINATION VITAL SIGNS: Blood pressure is 134/68, respiratory rate of 18, pulse 74, temperature is 97.8. GENERAL: She is an overweight white female resting comfortably, at this time in bed. She notes no acute GI distress. HEENT: Her pupils are equal, round and reactive to light. No obvious scleral icterus. Oropharyngeal cavity has no dental caries. No tongue deviation or candidal lesion. Hearing was intact. NECK: Supple With no thyromegaly or lymphadenopathy. LUNGS: Clear to auscultation. HEART: Irregular rate and rhythm. No gross murmurs are heard. ABDOMEN: Soft, non-distended, non-tender. No organomegaly. No ascites or tenderness. RECTAL EXAM: I did not repeat a rectal exam. As mentioned above, the rectal exam by the ER doctor showed hard stool in the rectum. The stool was brown in color. No mention was made of hemoccult testing. NEUROLOGIC: The patient appears alert and oriented x 3. She is somewhat dysarthric with stuttering speech. She had to move all four extremities. SKIN. Warm and dry. I did not assess her gait. DATABASE I as able to look through the ER records and she was heme-positive per the ER records. Her hemoglobin was 13.8, hematocrit of 41.4, MCV of 93.2, platelet count of 186,000. White blood cell count was 7500. Her BUN at 32 was elevated, creatinine of 1.41 is elevated, potassium 0.820, 0.4, SGOT 24, SGPT of 19, alk phos of 99, total protein of 8, albumin at 3.6. Potassium 3.8, sodium 139. Her Prothrombin time at 38.2, INR 2.6, PTT at 45.7. MEDICATIONS IN THE HOSPITAL include - 1. Insulin. 1. She had been given vitamin K. 1. Vasotec. 2. Glucagon. 3. Narcan. 4. Milk of magnesia. 5. Senokot. 6. Dulcolax suppository. 7. Lactulose. 8. Pantoprazole IV. IMPRESSION 1. Rectal bleeding - The rectal exam was relatively benign; it showed hard stools which are brown. I was able to find out that she was hemoccult positive. She does have known hemorrhoids and also diverticulosis. With the lack of finding on rectal exam, I suspect this was hemorrhoidal bleeding rather than diverticular. The daughter, myself and the patient talked about the differentials including proctitis, malignancies, theoretically no upper GI lesion also. 2. Constipation - According to her daughter, she does not take her laxatives all the time and the patient admits 3. History of grade 2 internal hemorrhoids. 4. History of diverticulosis in the past. 5. 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 She and her daughter do understand that he AVMs can re-occur at any time. However, they do not typically bleed like this. RECOMMENDATIONS 1. I discussed with the patient and daughter about colonoscopy, sigmoidoscopy or simply observation. The daughter and the patient are both hesitant about doing any procedures. The main fear they have is stopping the Coumadin and having a stroke as apparently that is what happened one time before. They understand I can do the procedures on Coumadin, there is just a higher risk of bleeding I may not remove anything or cauterize or do endoscopic clip if needed. At this time hey are not interested in rushing to do these procedures. They understand the indications, risks, complications and benefits, alternatives. The complications include bleeding, perforation, infection, arrhythmias, small possibility of in regard to the procedures. They understand the risk of missed lesions and that by not doing the procedure we may miss a cancer but the daughter says she is 81 years old and really does not want any more testing done. 2. In light of this, I would just give Anusol suppositories and continue laxatives for now to keep her stool soft. a daily laxatives for now keep stools soft. 3. Clear liquid diet. 4. Coumadin is on hold - agree. 5. Further recommendations depending on how she does. MD MELVIN Sanchez/SIXTO /7:11 PM /7:43 AM MARCO
[2016-11-16] MEDS: SODIUM CHLORIDE 0.9% FLUSH 10 ML FLUSH IV FLUSH SCH ×2 (09:00→21:43)
[2016-11-16] MEDS: PANTOPRAZOLE INJ 80 MG in SODIUM CHLORIDE 0.9% INJ 100 ML IV SCH ×3 (09:07→21:45)
[2016-11-16] MEDS: HYDROCORTISONE ACETATE 25 MG SUPP RECTAL SCH ×2 (09:08→21:43)
[2016-11-16] MEDS: DOCUSATE SODIUM 50 MG/SENNA 8.6 MG TAB PO SCH ×2 (09:08→21:43)
--- NOTE | 2016-11-16 11:15 | HHI.GIFU ---
GI Follow-up Note Consult Follow-up Subjective: Patient laying in bed comfortably. Lots of flatus but no BM or rectal bleeding. Denies abd pain,N,V Objective: PHYSICAL EXAMINATION: Vitals signs stable No fever . CHEST: Chest is clear to auscultation and percussion. ABDOMEN: Soft, nondistended, nontender; no hepatosplenomegaly; bowel sounds are present in all four quadrants. EXTREMITIES: No clubbing, cyanosis, or edema. SKIN: Normal; no rash; no jaundice. Available Data (labs, X- Rays, Procedures) : Hgb is stable ASSESSMENT/PLAN: 1. Rectal Bleeding (with BM's)--no bleeding this am but she has not had a BM 2. Constipation-on laxatives 3. Hx of grade 2 internal hemorrhoids 4. 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 Cont Anusol H-C supp and laxatives 2. clear liquid diet 3. Coumadin is on hold (agree) 4. D/W pt and Daughter-they want to hold off on a colonoscopy/sigmoidoscopy It was a pleasure seeing Barbie Orozco. Thank you for this consult. Entered by: Juanito Douglas MD Nov 16, 2016 11:15
[2016-11-16] MEDS: SODIUM CHLOR 0.9% 1000 ML INJ 1,000 ML IV SCH ×2 (11:30→21:44)
--- NOTE | 2016-11-16 13:31 | HHI.PR ---
Subjective Remarks Follow up for GI bleed. The patient reports feeling well today. She denies any abdominal pain, nausea, vomiting. She has not yet had a BM although passing flatus. She is worried about going home and bleeding again. She would like to advance her diet. Objective Vitals Vital Signs Date Time Temp Pulse Resp B/P Pulse Ox O2 Delivery O2 Flow Rate FiO2 11/16/16 11:42 97.0 62 18 135/69 98 11/16/16 09:00 63 11/16/16 07:23 97.3 63 18 143/65 94 11/16/16 04:00 97.8 58 14 126/69 96 11/16/16 00:09 60 11/15/16 23:43 97.6 74 16 140/65 96 11/15/16 19:34 97.0 64 18 146/63 96 11/15/16 19:06 58 11/15/16 14:22 74 18 134/68 98 Room Air 11/15/16 13:35 97 Room Air Result Diagram: 11/16/16 0700 11/16/16 0700 Other Results Laboratory Tests Test 11/15/16 11/16/16 13:38 07:00 Activated Partial 45.7 SEC Thromboplast Time Total Bilirubin 0.4 MG/DL Aspartate Amino Transf 24 U/L (AST/SGOT) Alanine Aminotransferase 19 U/L (ALT/SGPT) Alkaline Phosphatase 99 U/L Total Protein 8.0 GM/DL Albumin 3.6 GM/DL Blood Type O POSITIVE Antibody Screen NEGATIVE White Blood Count 5.6 TH/MM3 Red Blood Count 4.24 MIL/MM3 Hemoglobin 12.8 GM/DL Hematocrit 38.8 % Mean Corpuscular Volume 91.4 FL Mean Corpuscular Hemoglobin 30.1 PG Mean Corpuscular Hemoglobin 32.9 % Concent Red Cell Distribution Width 14.5 % Platelet Count 151 TH/MM3 Mean Platelet Volume 8.2 FL Neutrophils (%) (Auto) 70.8 % Lymphocytes (%) (Auto) 14.4 % Monocytes (%) (Auto) 11.3 % Eosinophils (%) (Auto) 2.6 % Basophils (%) (Auto) 0.9 % Neutrophils # (Auto) 4.0 TH/MM3 Lymphocytes # (Auto) 0.8 TH/MM3 Monocytes # (Auto) 0.6 TH/MM3 Eosinophils # (Auto) 0.1 TH/MM3 Basophils # (Auto) 0.0 TH/MM3 CBC Comment DIFF FINAL Differential Comment Prothrombin Time 37.4 SEC Prothromb Time International 3.2 RATIO Ratio Sodium Level 145 MEQ/L Potassium Level 3.5 MEQ/L Chloride Level 108 MEQ/L Carbon Dioxide Level 32.3 MEQ/L Anion Gap 5 MEQ/L Blood Urea Nitrogen 24 MG/DL Creatinine 1.27 MG/DL Estimat Glomerular Filtration 40 ML/MIN Rate Random Glucose 98 MG/DL Calcium Level 8.4 MG/DL Objective Remarks GENERAL: Well-nourished, well-developed elderly female patient in NAD. SKIN: Warm and dry. No rash. HEENT: Normocephalic. Atraumatic. Pupils equal and round. Mucous membranes pink and moist. NECK: Supple. Trachea midline. CARDIOVASCULAR: Regular rate and rhythm. S1, S2 noted. No murmur appreciated. RESPIRATORY: No accessory muscle use. Clear to auscultation. Breath sounds equal bilaterally. GASTROINTESTINAL: Abdomen soft, non-tender, nondistended. Normoactive bowel sounds x4. MUSCULOSKELETAL: No obvious deformities. Extremities without clubbing, cyanosis , or edema. NEUROLOGICAL: Awake and alert. No obvious cranial nerve deficits. Motor grossly within normal limits. Dysarthric speech. PSYCHIATRIC: Appropriate mood and affect; insight and judgment normal. Procedures No procedures performed. Medications and IVs Current Medications Medications (Trade) Dose Ordered Sig/Alessia Route Start Time Stop Time Status Last Admin Pantoprazole Sodium 80 mg/ Sodium Chloride 100 ml @ 10 mls/hr Q10H IV 11/15/16 13:45 11/16/16 09:07 (NS 1000 ml Inj) 1,000 ml @ 100 mls/hr Q10H IV 11/15/16 15:04 11/16/16 11:30 (NS Flush) 2 ml UNSCH PRN IV FLUSH 11/15/16 15:15 (NS Flush) 2 ml BID IV FLUSH 11/15/16 21:00 11/15/16 21:09 (Zofran Inj) 4 mg Q6H PRN IVP 11/15/16 15:15 (Narcan Inj) 0.4 mg UNSCH PRN IV 11/15/16 15:15 (Adelaide-Colace) 1 tab BID PO 11/15/16 21:00 11/16/16 09:08 (Milk Of Magnesia Liq) 30 ml Q12H PRN PO 11/15/16 15:15 (Senokot) 17.2 mg Q12H PRN PO 11/15/16 15:15 (Dulcolax Supp) 10 mg DAILY PRN RECTAL 11/15/16 15:15 (Lactulose Liq) 30 ml DAILY PRN PO 11/15/16 15:15 (D50w (Vial) Inj) 50 ml UNSCH PRN IV 11/15/16 17:45 11/16/16 05:00 (Glucagon Inj) 1 mg UNSCH PRN OTHER 11/15/16 17:45 (Vasotec Inj) 1.25 mg Q6H PRN IV PUSH 11/15/16 18:00 (Hemorrhoidal Hc Supp) 25 mg BID RECTAL 11/15/16 21:00 11/16/16 09:08 Urinary Catheter: No Vascular Central Line Catheter: No A/P Problem List: (1) Heart valve replaced ICD Code: Z95.2 Status: Chronic (2) Aortic valve prosthesis present ICD Code: Z95.2 Status: Acute (3) History of prosthetic mitral valve ICD Code: Z95.2 Status: Acute (4) GI bleed ICD Code: K92.2 Status: Acute (5) Anticoagulated on warfarin ICD Code: Z79.01 Status: Acute (6) Diabetes mellitus type 2 in obese ICD Code: E11.9 Status: Chronic (7) CKD (chronic kidney disease), stage III ICD Code: N18.3 Status: Chronic (8) HTN (hypertension) ICD Code: I10 Status: Chronic Assessment and Plan 81 year old female with history of CVA, dysarthria, atrial fibrillation, artificial mitral/aortic valves on Coumadin, HTN, HLD, DM, GI AVMs, CKD, admitted with GI Bleed while on Coumadin GI Bleeding: reported BRBPR. Hemoglobin currently stable 13.8 --> 12.8. Monitor CBC. Suspect hemorrhoidal bleeding, hx of internal/external hemorrhoids, bleeding occurred with constipation and hard BMs. -Monitor H&H -hold coumadin for now, given Vitamin K 5mg x1 -consulted gastroenterology, plan to hold off on colonoscopy at this time -started patient on Anusol A-C bid -continue bowel regimen -clear liquid diet, advance per GI recommendations -monitor for bleeding Artificial Mitral and Aortic Valve, on Coumadin: chronic -Coumadin on hold until bleeding stops -plan to resume Coumadin after bleeding stops -monitor daily INR, currently INR 3.2 DM2: chronic, stable -monitor accu-checks and cover with Insulin Sliding Scale CKD, stage III: chronic, appears at baseline -given IVF hydration -Follow renal function -appears stable PAD/CAD: chronic, stable -Follow clinically -No complaints of chest pain HTN: chronic, BP fairly well controlled -continue patient's home metoprolol and spironolactone -monitor BP, adjust antihypertensives as needed -IV Enalapril prn DVT Prophylaxis: SCDs, on coumadin with therapeutic INR Attending Statement Discussed with GERARDO Burrell, patient stable replaced Potassium on hold Coumadin, also on hold EGD and Colonoscopy as per Family request. Problem Qualifiers (1) GI bleed: Qualified Code: K92.2 - Gastrointestinal hemorrhage, unspecified gastrointestinal hemorrhage type Candice Burrell PA-C Nov 16, 2016 13:31 Kris Mackey MD Nov 16, 2016 17:43
[2016-11-16] MEDS ORDERED: POTASSIUM CHLORIDE 20 MEQ CONTROLLED RELEASE TAB PO ONE (17:45)
[2016-11-17] VITALS: BP 131/84; PULSE 61; RESP 20; TEMP 98.1; O2SAT 96
[2016-11-17 04:00] VITALS: BP 147/65; PULSE 65; RESP 20; TEMP 97.8; O2SAT 97
[2016-11-17] MEDS: PANTOPRAZOLE INJ 80 MG in SODIUM CHLORIDE 0.9% INJ 100 ML IV SCH (05:45)
[2016-11-17] MEDS ORDERED: LEVOTHYROXINE SODIUM 50 MCG TAB PO SCH (06:00)
[2016-11-17] MEDS: SODIUM CHLOR 0.9% 1000 ML INJ 1,000 ML IV SCH (06:14)
[2016-11-17] MEDS: INSULIN ASPART SUPPLEMENTAL SCALE SQ SCH ×2 (06:16→11:00)
[2016-11-17 07:33] VITALS: BP 158/70; PULSE 66; RESP 20; TEMP 97.6; O2SAT 97
[2016-11-17 07:41] LABS: AUTOMATED NEUTROPHIL # 5.2 TH/MM3 (1.8-7.7); BASOPHIL % 0.5 % (0.0-2.0); EOSINOPHIL # 0.1 TH/MM3 (0-0.4); EOSINOPHIL % 1.6 % (0.0-4.0); HEMATOCRIT 42.5 % (35.0-46.0); HEMO FLAGS DIFF FINAL; LYMPH % 13.4 % (9.0-44.0); LYMPHOCYTE # 0.9 TH/MM3 (1.0-4.8); MEAN CELL VOLUME 92.7 FL (80.0-100.0); MEAN CORPUSCULAR HEMOGLOBIN 29.5 PG (27.0-34.0); MEAN CORPUSCULAR HGB CONC 31.8 % (32.0-36.0); MONO % 8.1 % (0.0-8.0); NEUT % 76.4 % (16.0-70.0); PLATELET COUNT 156 TH/MM3 (150-450); RED BLOOD COUNT 4.58 MIL/MM3 (4.00-5.30); RED CELL DISTRIBUTION WIDTH 14.7 % (11.6-17.2); WHITE BLOOD COUNT 6.8 TH/MM3 (4.0-11.0)
[2016-11-17 07:44] LABS: INTERNATIONAL NORMALIZED RATIO 2.8 RATIO; PROTHROMBIN TIME - PATIENT 31.8 SEC (9.8-11.6)
[2016-11-17 07:59] LABS: BICARBONATE 27.3 MEQ/L (21.0-32.0); POTASSIUM 4.2 MEQ/L (3.5-5.1)
[2016-11-17] MEDS ORDERED: METOPROLOL SUCCINATE 25 MG EXTENDED RELEASE TAB PO SCH (09:00)
[2016-11-17] MEDS ORDERED: PRAVASTATIN SOD 40 MG TAB PO SCH (09:00)
[2016-11-17] MEDS ORDERED: DULoxetine HCl DR 20 MG CAP PO SCH (09:00)
[2016-11-17] MEDS: SODIUM CHLORIDE 0.9% FLUSH 10 ML FLUSH IV FLUSH SCH (09:00)
[2016-11-17] MEDS ORDERED: SPIRONOLACTONE 25 MG TAB PO SCH (09:00)
[2016-11-17] MEDS ORDERED: POLYETHYLENE GLYCOL 17 GM PKG PO ONE (09:15)
--- NOTE | 2016-11-17 09:24 | HHI.PR ---
Subjective Remarks Follow-up for GI bleeding. The patient is seen with daughter at bedside. No further bleeding overnight. Patient has been tolerating clear liquids and light to advance her diet. The patient and family decline any enteroscopy. She denies any abdominal pain. They do report that the patient has a history of labile INR. She does not have mechanical valves. The patient's daughter is concerned that the patient has not had a bowel movement since admission and has not gotten out of bed yet. The patient's PCP Dr. Owen and her check writer salesperson Dr. Lawrence monitor her INR. Objective Vitals Vital Signs Date Time Temp Pulse Resp B/P Pulse Ox O2 Delivery O2 Flow Rate FiO2 11/17/16 07:33 97.6 66 20 158/70 97 11/17/16 04:00 97.8 65 20 147/65 97 11/17/16 00:00 98.1 61 20 131/84 96 11/16/16 20:00 60 11/16/16 19:52 97.9 60 18 134/60 98 11/16/16 15:32 98.5 60 18 119/58 97 11/16/16 11:42 97.0 62 18 135/69 98 Result Diagram: 11/17/16 0647 11/17/16 0652 Objective Remarks GENERAL: Well-developed well-nourished. Morbidly obese. In no acute distress. SKIN: Warm and dry. No lesions noted. HEENT: Normocephalic. Pupils equal and round. Mucous membranes pink and moist. CARDIOVASCULAR: Regular rate and rhythm. No murmur appreciated. RESPIRATORY: No accessory muscle use. Clear to auscultation. Breath sounds equal bilaterally. GASTROINTESTINAL: Abdomen soft, non-tender, nondistended. Bowel sounds x4. MUSCULOSKELETAL: No obvious deformities. No clubbing or cyanosis. No edema. NEUROLOGICAL: Awake and alert. Moves upper and lower extremities spontaneously. Dysarthric speech. PSYCHIATRIC: Appropriate mood and affect; insight and judgment fair to normal. Procedures No procedures performed. A/P Problem List: (1) Heart valve replaced ICD Code: Z95.2 Status: Chronic (2) Aortic valve prosthesis present ICD Code: Z95.2 Status: Acute (3) History of prosthetic mitral valve ICD Code: Z95.2 Status: Acute (4) GI bleed ICD Code: K92.2 Status: Acute (5) Anticoagulated on warfarin ICD Code: Z79.01 Status: Acute (6) Diabetes mellitus type 2 in obese ICD Code: E11.9 Status: Chronic (7) CKD (chronic kidney disease), stage III ICD Code: N18.3 Status: Chronic (8) HTN (hypertension) ICD Code: I10 Status: Chronic Assessment and Plan 81 year old female with history of CVA, dysarthria, atrial fibrillation, artificial mitral/aortic valves on Coumadin, HTN, HLD, DM, GI AVMs, CKD, admitted with GI Bleed while on Coumadin GI Bleeding: reported BRBPR. Hemoglobin currently stable 13.8 --> 13.5. Suspect hemorrhoidal bleeding, hx of internal/external hemorrhoids, bleeding occurred with constipation and hard BMs. -Monitor H&H, currently stable -held coumadin, resume now with no further bleeding -consulted gastroenterology, plan to hold off on colonoscopy at this time -GI started patient on Anusol A-C bid -continue bowel regimen, add MiraLAX -Advance diet -monitor for bleeding Atrial fibrillation with chronic anticoagulation on Coumadin: Coumadin was held and patient was given vitamin K 5mg 1. INR is now therapeutic at 2.8. -With no further bleeding and therapeutic INR, patient family wish to resume Coumadin to prevent future stroke -Did discuss at length with patient and family regarding Chadsvasc and Hasbled risk scores, patient and family want to follow-up with cardiology to discuss possible change to NOAC DM2: chronic, stable -monitor accu-checks and cover with Insulin Sliding Scale CKD, stage III: chronic, appears at baseline -given IVF hydration, DC -Follow renal function PAD/CAD: chronic, stable -Follow clinically -No complaints of chest pain HTN: chronic, BP fairly well controlled -continue patient's home metoprolol and spironolactone -monitor BP, adjust antihypertensives as needed -IV Enalapril prn DVT Prophylaxis: SCDs, on coumadin with therapeutic INR Discharge Planning Likely discharge home later today. Follow-up for BM and PT recommendations. May need HHC. Problem Qualifiers (1) GI bleed: Qualified Code: K92.2 - Gastrointestinal hemorrhage, unspecified gastrointestinal hemorrhage type Jonatan Rader Nov 17, 2016 09:24
[2016-11-17] MEDS ORDERED: META48.53 PO (09:25)
[2016-11-17] MEDS ORDERED: SENN1TAB PO (09:25)
[2016-11-17 09:32] VITALS: PULSE 66
[2016-11-17] MEDS: DOCUSATE SODIUM 50 MG/SENNA 8.6 MG TAB PO SCH (09:32)
[2016-11-17] MEDS: HYDROCORTISONE ACETATE 25 MG SUPP RECTAL SCH (09:32)
--- NOTE | 2016-11-17 11:07 | HHI.GIFU ---
GI Follow-up Note Consult Follow-up Subjective: Patient states no further GI bleeding. +flatus but no BM. denies N/ N/abd pain Objective: PHYSICAL EXAMINATION: Vitals signs stable No fever CHEST: Chest is clear to auscultation and percussion. CARDIAC: Regular rate and rhythm with no murmur gallop or rubs. ABDOMEN: Soft, nondistended, nontender; no hepatosplenomegaly; bowel sounds are present in all four quadrants. EXTREMITIES: No clubbing, cyanosis, or edema. GEM TECHNICIAN: alert and oriented times three. Available Data (labs, X- Rays, Procedures) : Hgb stable ASSESSMENT/PLAN: 1. Rectal Bleeding (with BM's)--resolved 2. Constipation-pt given a laxative today 3. Hx of grade 2 internal hemorrhoids 4. 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 Cont Anusol H-C supp and laxatives 2. advance diet 3. D/W pt and Daughter-they want to hold off on a colonoscopy/sigmoidoscopy It was a pleasure seeing Barbie Orozco. Thank you for this consult. Entered by: Juanito Douglas MD Nov 17, 2016 11:07
[2016-11-17 11:41] VITALS: BP 150/67; PULSE 60; RESP 18; TEMP 98.6; O2SAT 96
--- NOTE | 2016-11-17 14:33 | HHI.DS ---
Discharge Summary Admission Date Nov 15, 2016 at 15:03 Discharge Date: Nov 17, 2016 Admitting Diagnosis GI Bleed, Anticoagulated on Warfarin (1) Anticoagulated on warfarin ICD Code: Z79.01 Diagnosis: Principal (2) GI bleed ICD Code: K92.2 Diagnosis: Principal (3) Heart valve replaced ICD Code: Z95.2 (4) Aortic valve prosthesis present ICD Code: Z95.2 Diagnosis: Secondary (5) History of prosthetic mitral valve ICD Code: Z95.2 Diagnosis: Secondary (6) Diabetes mellitus type 2 in obese ICD Code: E11.9 Diagnosis: Secondary (7) CKD (chronic kidney disease), stage III ICD Code: N18.3 (8) HTN (hypertension) ICD Code: I10 Diagnosis: Secondary Procedures No procedures performed. Brief History - From Admission Mrs. Orozco is an 81 year old female. She is here today due to an acute onset of GI Bleeding while having a bowel movement. She reports straining and then seeing blood in her stool and toilet bowl. When she stood, there was dripping of blood. Concerned she came to the ER. She is on Coumadin at baseline secondary to artificial aortic and mitral heart valves. INR is therapeutic tonight. She has one previous GI Bleed in 2010. Hgb is 13.8 tonight. No complaints of abdominal pain. At baseline she has dysarthria secondary to a history of CVA. No other complaints. No chest pain, no dyspnea, no nausea, no diarrhea, no presyncope. CBC/BMP: 11/17/16 0647 11/17/16 0652 Significant Findings Laboratory Tests Test 11/15/16 11/16/16 11/17/16 11/17/16 13:38 07:00 06:47 06:52 Mean Corpuscular Hemoglobin 31.7 % 31.8 % Concent (32.0-36.0) (32.0-36.0) Neutrophils (%) (Auto) 70.8 % 70.8 % 76.4 % (16.0-70.0) (16.0-70.0) (16.0-70.0) Monocytes (%) (Auto) 9.1 % (0.0-8.0) 11.3 % 8.1 % (0.0-8.0) (0.0-8.0) Prothrombin Time 30.2 SEC 37.4 SEC 31.8 SEC (9.8-11.6) (9.8-11.6) (9.8-11.6) Activated Partial 45.7 SEC Thromboplast Time (24.3-30.1) Blood Urea Nitrogen 32 MG/DL (7-18) 24 MG/DL (7-18) Creatinine 1.41 MG/DL 1.27 MG/DL 1.25 MG/DL (0.50-1.00) (0.50-1.00) (0.50-1.00) Estimat Glomerular Filtration 36 ML/MIN (>89) 40 ML/MIN (>89) 41 ML/MIN (>89) Rate Lymphocytes # (Auto) 0.8 TH/MM3 0.9 TH/MM3 (1.0-4.8) (1.0-4.8) Chloride Level 108 MEQ/L 108 MEQ/L (98-107) (98-107) Carbon Dioxide Level 32.3 MEQ/L (21.0-32.0) Calcium Level 8.4 MG/DL 8.3 MG/DL (8.5-10.1) (8.5-10.1) Random Glucose 107 MG/DL (74-106) PE at Discharge GENERAL: Well-developed well-nourished. Morbidly obese. In no acute distress. SKIN: Warm and dry. No lesions noted. HEENT: Normocephalic. Pupils equal and round. Mucous membranes pink and moist. CARDIOVASCULAR: Regular rate and rhythm. No murmur appreciated. RESPIRATORY: No accessory muscle use. Clear to auscultation. Breath sounds equal bilaterally. GASTROINTESTINAL: Abdomen soft, non-tender, nondistended. Bowel sounds x4. MUSCULOSKELETAL: No obvious deformities. No clubbing or cyanosis. No edema. NEUROLOGICAL: Awake and alert. Moves upper and lower extremities spontaneously. Dysarthric speech. PSYCHIATRIC: Appropriate mood and affect; insight and judgment fair to normal. Hospital Course 81 year old female with history of CVA, dysarthria, atrial fibrillation, artificial mitral/aortic valves on Coumadin, HTN, HLD, DM, GI AVMs, CKD, admitted with GI Bleed while on Coumadin GI Bleeding: reported BRBPR. Hemoglobin currently stable 13.8 --> 13.5. Suspect hemorrhoidal bleeding, hx of internal/external hemorrhoids, bleeding occurred with constipation and hard BMs. -Monitor H&H, currently stable -held coumadin, resume now with no further bleeding -consulted gastroenterology, plan to hold off on colonoscopy at this time -GI started patient on Anusol A-C bid -continue bowel regimen, add MiraLAX -Advance diet -monitor for bleeding Atrial fibrillation with chronic anticoagulation on Coumadin: Coumadin was held and patient was given vitamin K 5mg 1. INR is now therapeutic at 2.8. -With no further bleeding and therapeutic INR, patient family wish to resume Coumadin to prevent future stroke -Did discuss at length with patient and family regarding Chadsvasc and Hasbled risk scores, patient and family want to follow-up with cardiology to discuss possible change to NOAC DM2: chronic, stable -monitor accu-checks and cover with Insulin Sliding Scale CKD, stage III: chronic, appears at baseline -given IVF hydration, DC -Follow renal function PAD/CAD: chronic, stable -Follow clinically -No complaints of chest pain HTN: chronic, BP fairly well controlled -continue patient's home metoprolol and spironolactone -monitor BP, adjust antihypertensives as needed -IV Enalapril prn DVT Prophylaxis: SCDs, on Coumadin with therapeutic INR Discharge Planning Discharge home in stable condition. To follow up as OP with PCP and consultants. Pt Condition on Discharge: Stable Discharge Disposition: Disch w/ Home Health Serv Discharge Time: > 30 minutes Discharge Instructions DIET: Follow Instructions for: Heart Healthy Diet, Diabetic Diet, Coumadin ( Warfarin) Diet Follow up Referrals: Cardiology - 2 Weeks with Carter Mcelroy MD Gastroenterology - 10 Days with Amando Melton MD PCP Follow-up - 1 Week with Nabil Owen MD New Medications: Psyllium Powder (Metamucil Original Texture) 48.57 % Pow 1 SCOOP PO TID 1 rounded TEASPOON in 8 oz of liquid at the first sign of irregularity. PRN CONSTIPATION #1 Ref 0 CONTAINER Sennosides-Docusate Sodium (Senna Plus 8.6-50 mg) 1 Tab Tab 1 TAB PO BID Constipation #60 TAB Continued Medications: Calcitriol (Calcitriol) 0.25 Mcg Cap 0.25 MCG PO MON, WED, SUN Calcium Supplement #[address] (Cymbalta DR) 20 Mg Capdr 20 MG PO DAILY #30 Ref 0 CAP Glipizide (Glipizide) 5 Mg Tab 5 MG PO BIDAC Take 30 minutes before a meal Blood Sugar Management #60 Ref 0 TAB Levothyroxine (Levothyroxine) 50 Mcg Tab 50 MCG PO DAILY Thyroid #30 Ref 0 TAB Metoprolol Succinate ER 24 HR (Toprol XL) 25 Mg Tab 25 MG PO DAILY #30 Ref 0 TAB Simvastatin (Zocor) 20 Mg Tab 20 MG PO DAILY Cholesterol Management #30 Ref 0 TAB Spironolactone (Aldactone) 25 Mg Tab 25 MG PO DAILY #30 Ref 0 TAB Warfarin (Warfarin) 2 Mg Tab 2 MG PO DAILY Blood Clot Prevention #30 Ref 0 TAB Discontinued Medications: Sennosides (Senokot) 8.6 Mg Tab 8.6 MG PO DAILY Constipation #30 Ref 0 TAB Agnes Chavez MD Nov 17, 2016 14:33
--- NOTE | 2016-11-17 15:04 | HHI.FF ---
Face to Face Verification Diagnosis: (1) Neurological deficit present (2) Expressive aphasia (3) GI bleed (4) Anticoagulated on warfarin (5) Afib (6) Diabetes mellitus type 2 in obese Physical Therapy Order: Evaluate and Treat, Improve ambulation, Strength and gait training Home Health Nursing Order: Medical education Signs/symptoms of disease process Diabetic education CHF education Medication education-adverse effect Nursing assessment with vital signs Instructions: Home INR monitoring with results to Dr. Owen and Dr. Lawrence I have seen patient Barbie Orozco on 11/17/16. My clinical findings support the need for the requested home health care services because: Ltd mobility - disease progression Deconditioned w/ increased weakness Med compliance is questionable Limited ability to care for self Impaired cognition/judgement High risk of falls I certify that my clinical findings support that this patient is homebound because: Impaired cognitive ability/safety Unsteady gait/balance Unsafe to leave home unassisted Poor cardiac reserve Jonatan Rader Nov 17, 2016 15:04 Agnes Chavez MD Nov 17, 2016 18:34
[2016-11-17] MEDS ORDERED: LACTULOSE SYRUP 20 GM/30 ML CUP PO ONE (15:30)
[2016-11-17 15:55] VITALS: BP 141/74; PULSE 65; RESP 18; TEMP 98.8; O2SAT 97
[2016-11-18] MEDS ORDERED: WARFARIN SOD 2 MG TAB PO SCH (16:00)
== END 2016-11-17 17:07 | disposition home or self-care (01) ==
LOC: NEPC 12:38 → NEDA 15:03 → NEPHCDU 16:29
PROVIDERS: ADMIT Hospitalist; ATTEND Hospitalist
DX: K62.5 Hemorrhage of anus and rectum (principal); K59.00 Constipation, unspecified; I13.0 Hypertensive heart and chronic kidney disease with heart failure and stage 1 through stage 4 chronic kidney disease, or unspecified chronic kidney disease; N18.3 Chronic kidney disease, stage 3 (moderate); I50.9 Heart failure, unspecified; E11.22 Type 2 diabetes mellitus with diabetic chronic kidney disease; E11.51 Type 2 diabetes mellitus with diabetic peripheral angiopathy without gangrene; E66.9 Obesity, unspecified; I25.10 Atherosclerotic heart disease of native coronary artery without angina pectoris; M54.2 Cervicalgia; G89.29 Other chronic pain; E03.9 Hypothyroidism, unspecified; I69.822 Dysarthria following other cerebrovascular disease; M19.90 Unspecified osteoarthritis, unspecified site; I48.91 Unspecified atrial fibrillation; E78.00 Pure hypercholesterolemia, unspecified; Z95.5 Presence of coronary angioplasty implant and graft; Z87.74 Personal history of (corrected) congenital malformations of heart and circulatory system; Z87.19 Personal history of other diseases of the digestive system; Z95.2 Presence of prosthetic heart valve; Z87.891 Personal history of nicotine dependence; Z98.62 Peripheral vascular angioplasty status; Z87.11 Personal history of peptic ulcer disease; Z68.41 Body mass index [BMI] 40.0-44.9, adult; Z79.84 Long term (current) use of oral hypoglycemic drugs; Z79.01 Long term (current) use of anticoagulants
CPT/HCPCS: 80048; 80053; 82948; 85025; 85610; 85730; 86850; 86900; 86901; 96365; 96366; 97162; 99285; C9113; G0378; G8987; G8988; J1815; J7030

== ENCOUNTER → 2016-11-28 | Outpatient (CLI) | payer MEDICARE, OTHER ==
[~2016-11-28] MED LIST changes: +META48.53 PO; +SENN1TAB PO; -SENO8.6T5 PO
[2016-11-28 13:40] LABS: BICARBONATE 30.3 MEQ/L (21.0-32.0); POTASSIUM 4.1 MEQ/L (3.5-5.1)
== END ==
LOC: PLAB 09:21
PROVIDERS: ATTEND Internal Medicine Nephrology
DX: N18.3 Chronic kidney disease, stage 3 (moderate) (principal)
CPT/HCPCS: 36415; 80069

== ENCOUNTER → 2017-03-12 | Outpatient (CLI) | payer MEDICARE, OTHER ==
[2017-03-12 10:31] LABS: AUTOMATED NEUTROPHIL # 6.6 TH/MM3 (1.8-7.7); BASOPHIL % 0.5 % (0.0-2.0); EOSINOPHIL # 0.2 TH/MM3 (0-0.4); EOSINOPHIL % 2.3 % (0.0-4.0); HEMATOCRIT 42.5 % (35.0-46.0); HEMO FLAGS DIFF FINAL; LYMPH % 11.9 % (9.0-44.0); MEAN CELL VOLUME 92.6 FL (80.0-100.0); MEAN CORPUSCULAR HEMOGLOBIN 30.4 PG (27.0-34.0); MEAN CORPUSCULAR HGB CONC 32.8 % (32.0-36.0); NEUT % 77.3 % (16.0-70.0); PLATELET COUNT 181 TH/MM3 (150-450); RED BLOOD COUNT 4.59 MIL/MM3 (4.00-5.30); RED CELL DISTRIBUTION WIDTH 15.7 % (11.6-17.2); WHITE BLOOD COUNT 8.6 TH/MM3 (4.0-11.0)
[2017-03-12 10:52] LABS: ALT (GPT) 16 U/L (10-53); ANION GAP 8 MEQ/L (5-15); AST (GOT) 15 U/L (15-37); BICARBONATE 29.1 MEQ/L (21.0-32.0); BLOOD UREA NITROGEN 33 MG/DL (7-18); CHLORIDE 103 MEQ/L (98-107); GLOMERULAR FILTRATION RATE 42 ML/MIN (>89); GLUCOSE,FASTING 91 MG/DL (74-99); POTASSIUM 4.8 MEQ/L (3.5-5.1); SODIUM (NA) 140 MEQ/L (136-145)
[2017-03-12 11:02] LABS: ALKALINE PHOSPHATASE 109 U/L (45-117); HDL CHOLESTEROL 39.7 MG/DL (40.0-60.0); LDL CHOLESTEROL 87 MG/DL (0-99); TOTAL BILIRUBIN ADULT 0.5 MG/DL (0.2-1.0)
== END ==
LOC: PLAB 08:43
PROVIDERS: ATTEND Family Medicine
DX: I10 Essential (primary) hypertension (principal); E03.9 Hypothyroidism, unspecified; E78.5 Hyperlipidemia, unspecified
CPT/HCPCS: 36415; 80053; 80061; 84443; 85025